=== PATIENT | female | born 1970 | race Caucasian/White ===

== ENCOUNTER 2024-05-13 08:53 | Outpatient (OUT) | payer OTHER, SELFPAY | END 2024-05-13 08:54 | disposition home or self-care (01) | LOC: PST 08:53 | PROVIDERS: Visit Provider Surgery | DX: Z01.818 Encounter for other preprocedural examination (principal); Z12.11 Encounter for screening for malignant neoplasm of colon ==

== ENCOUNTER 2024-05-21 06:25 | Day surgery (SDC) | payer OTHER, SELFPAY ==
--- NOTE | 2024-05-21 | OP_ITS ---
OPERATION DATE: 05/21/2024 PREOPERATIVE DIAGNOSIS: Colorectal screening. POSTOPERATIVE DIAGNOSIS: Severe sigmoid diverticulosis. PROCEDURE: Colonoscopy to cecum. SURGEON: Hollis Larios M.D. ANESTHESIA: Monitored anesthesia care. ESTIMATED BLOOD LOSS: Zero. INDICATIONS AND CONSENT: Patient is a 57-year-old female presents for colorectal screening. Indications, risks, benefits, alternatives of proceeding with colonoscopy were explained extensively to the patient, including the risks of bleeding, colon perforation or anesthetic complications. All of her questions were answered. Informed consent was obtained. PROCEDURE: Patient brought to the operating room, placed in the left lateral decubitus position. Monitored anesthesia care was provided. Rectal exam was performed which showed no masses or blood. The scope was inserted into the anal canal. Under direct visualization was advanced. With the aid of abdominal compression, the scope was advanced to the cecum where cecal markings were clearly identified. Patient was noted to have a redundant to colon. Upon withdrawal of the scope, mucosal surfaces were carefully examined. There was noted to be a good prep. There were no mass lesions or polyps. No inflammatory changes or ulcerations. There was severe sigmoid diverticulosis, as well as a tortuous, redundant colon. No evidence of inflammation or scarring within the sigmoid colon. The scope was retroflexed in the anal canal. There was no significant hemorrhoidal disease. Scope was then withdrawn. Patient tolerated procedure well, was sent to recovery room in good condition. f/u colonoscopy in 10 years for screening. CC: Remy Zelaya M.D. JORGE LUIS
[2024-05-21 07:12] LABS: Glucometer 149 mg/dL (74-106)
[2024-05-21 07:17] VITALS: BP 122/58; PULSE 66; TEMP 36.1; O2SAT 96; BMI 36.9
[2024-05-21] MEDS: 0.9 % SODIUM CHLORIDE 500 ML 50 ML IV (07:31)
[2024-05-21 08:29] VITALS: BP 121/67; PULSE 79; TEMP 36.2; O2SAT 97
[2024-05-21 08:44] VITALS: BP 132/67; PULSE 63; O2SAT 96
[2024-05-21 08:59] VITALS: BP 123/76; PULSE 68; O2SAT 96
== END 2024-05-21 08:59 | disposition home or self-care (01) ==
PROVIDERS: Visit Provider Surgery
PROC: (CPT 00811; principal; 2024-05-21 08:00)
DX: Z12.11 Encounter for screening for malignant neoplasm of colon (principal); K57.30 Diverticulosis of large intestine without perforation or abscess without bleeding; I25.10 Atherosclerotic heart disease of native coronary artery without angina pectoris; I48.91 Unspecified atrial fibrillation; J45.909 Unspecified asthma, uncomplicated; E78.5 Hyperlipidemia, unspecified; C85.90 Non-Hodgkin lymphoma, unspecified, unspecified site; G47.33 Obstructive sleep apnea (adult) (pediatric); M79.7 Fibromyalgia; K21.9 Gastro-esophageal reflux disease without esophagitis; Z90.49 Acquired absence of other specified parts of digestive tract; Z79.84 Long term (current) use of oral hypoglycemic drugs; I25.2 Old myocardial infarction; Z95.5 Presence of coronary angioplasty implant and graft; E11.40 Type 2 diabetes mellitus with diabetic neuropathy, unspecified
CPT/HCPCS: 00811; 45378; 36415; 82948; J2704